=== PATIENT | male | born 1990 | race Caucasian/White ===

== ENCOUNTER 2017-06-03 12:46 | Outpatient (CLI) | payer OTHER ==
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
== END 2017-06-03 12:47 | disposition home or self-care (01) ==
LOC: SCSRAD 12:46
PROVIDERS: ATTEND Family Medicine
DX: S22.22XA Fracture of body of sternum, initial encounter for closed fracture (principal)
CPT/HCPCS: 71046; 71120

== ENCOUNTER 2019-10-01 22:04 | Emergency (ER) | payer OTHER, SELFPAY ==
[2019-10-01] MEDS ORDERED: Diazepam 10 MG/2 ML SYRINGE ONE (22:35)
--- NOTE | 2019-10-01 22:35 | RAD ---
Chest AP view INDICATION: History of chest pain COMPARISON: May 03, 2012 and June 03, 2017 FINDINGS: Lungs: The lungs are clear Cardiac silhouette: The cardiomediastinal silhouette appears within normal limits. Pulmonary vasculature: Normal Pleural spaces: No pleural effusion or pneumothorax is demonstrated. Upper abdomen: No abnormality seen. Osseous structures: No acute osseous abnormality. Additional findings: None. IMPRESSION: No acute cardiopulmonary abnormality.
[2019-10-01 22:38] LABS: #Basophils 0.1 thou/uL (0.0-0.2); #Eosinphils 0.2 thou/uL (0.0-0.7); #Lymphocytes 1.9 thou/uL (1.20-3.40); #Monocytes 0.7 thou/uL (0.11-0.59); %Basophils 1.1 % (0.0-1.0); %Eosinophils 2.6 % (0.0-10.0); %Monocytes 8.2 % (0.0-10.0); %Neutrophils 67.2 % (42.0-75.0); Hemoglobin 16.5 g/dL (14.0-18.0); Mean Corpuscular HGB CONC 34.4 g/dL (32.0-36.0); Mean Corpuscular Hemoglobin 32.8 pg (27.0-31.0); Mean Corpuscular Volume 95.3 fL (78.0-98.0); Mean Platelet Volume 8.2 fL (7.4-10.4); Platelet Count 237 thou/uL (130-400); RBC Distribution Width 11.8 % (11.5-14.5); Red Blood Cell (RBC) Count 5.04 mill/uL (4.70-6.10); White Blood Cell (WBC) Count 8.9 thou/uL (4.8-10.8)
[2019-10-01] MEDS ORDERED: chlordiazePOXIDE HCl 25 MG CAP ONE (22:41)
[2019-10-01 22:55] LABS: Bilirubin Negative (Negative); Blood, Urine Negative (Negative); Clarity Clear (Clear); Glucose, Urine (Dipstick) Normal (Negative); Leukocyte Negative Leu/uL (Negative); Nitrite Negative (Negative); Protein, Urine (Dipstick) 10 mg/dL (Neg-Trace); Urobilinogen Normal mg/dL (Less than 2)
[2019-10-01 22:59] LABS: Anion Gap 17 mmol/L (10-20); BUN (Urea Nitrogen) 7 mg/dL (8.9-20.6); Bilirubin, Total 0.6 mg/dL (0.2-1.2); Calc. Creatinine Clearance 0 mL/min (70-130); Calcium 9.7 mg/dL (7.8-10.44); Carbon Dioxide 25 mmol/L (22-29); Chloride 100 mmol/L (98-107); Estimated GFR-MDRD Greater than 90; Glucose 104 mg/dL (70-105); Potassium 3.7 mmol/L (3.5-5.1); Protein, Total 9.2 g/dL (6.0-8.3); Sodium 138 mmol/L (136-145)
[2019-10-01 23:00] LABS: ALT (SGPT) 186 U/L (8-55); AST (SGOT) 127 U/L (5-34); Albumin 4.9 g/dL (3.5-5.0); Alkaline Phosphatase 92 U/L (40-110); Globulin 4.3 g/dL (2.4-3.5)
--- NOTE | 2019-10-03 12:14 | EKG ---
Test Reason : Blood Pressure : / mmHG Vent. Rate : 107 BPM Atrial Rate : 107 BPM P-R Int : 162 ms QRS Dur : 104 ms QT Int : 350 ms P-R-T Axes : 039 -27 001 degrees QTc Int : 467 ms Sinus tachycardia Possible Left atrial enlargement Incomplete right bundle branch block Left ventricular hypertrophy Abnormal ECG Confirmed by HERLINDA PASCUAL, DIANNA ([id number]), editor department LINA MAHER ([id number]) on 10/03/2019 12:14:09 PM Referred By: Confirmed By:DIANNA PATE MD
== END 2019-10-02 00:40 | disposition home or self-care (01) ==
LOC: ERS 22:04
DX: F10.239 Alcohol dependence with withdrawal, unspecified (principal)
CPT/HCPCS: 71045; 80053; 81003; 84484; 85025; 93005; J3360

== ENCOUNTER 2021-12-22 04:18 | Inpatient (IN) | payer SELFPAY ==
[2021-12-22] MEDS ORDERED: Aspirin Chewable 81 MG TAB ONE (04:37)
[2021-12-22] MEDS ORDERED: Diltiazem 125 MG/25 ML ONE ×2 (04:37→04:46)
[2021-12-22 05:05] LABS: #Basophils 0.1 thou/uL (0.0-0.2); #Eosinphils 0.2 thou/uL (0.0-0.7); #Lymphocytes 1.8 thou/uL (1.20-3.40); #Monocytes 0.9 thou/uL (0.11-0.59); #Neutrophils 5.3 thou/uL (1.40-6.50); %Eosinophils 2.4 % (0.0-10.0); %Lymphocytes 21.6 % (21.0-51.0); %Monocytes 10.9 % (0.0-10.0); %Neutrophils 64.2 % (42.0-75.0); Mean Corpuscular HGB CONC 34.9 g/dL (32.0-36.0); Mean Corpuscular Hemoglobin 33.5 pg (27.0-31.0); Mean Platelet Volume 8.3 fL (7.4-10.4); Platelet Count 228 thou/uL (130-400); RBC Distribution Width 11.4 % (11.5-14.5); Red Blood Cell (RBC) Count 5.07 mill/uL (4.70-6.10); White Blood Cell (WBC) Count 8.3 thou/uL (4.8-10.8)
[2021-12-22 05:26] LABS: ALT (SGPT) 64 U/L (8-55); AST (SGOT) 56 U/L (5-34); Albumin 4.7 g/dL (3.5-5.0); Alkaline Phosphatase 81 U/L (40-110); Anion Gap 18 mmol/L (10-20); BUN (Urea Nitrogen) 9 mg/dL (8.9-20.6); Calc. Creatinine Clearance 0 mL/min (70-130); Calcium 10.2 mg/dL (7.8-10.44); Carbon Dioxide 21 mmol/L (22-29); Chloride 101 mmol/L (98-107); Estimated GFR 119; Globulin 4.2 g/dL (2.4-3.5); Glucose 118 mg/dL (70-105); Potassium 3.4 mmol/L (3.5-5.1); Protein, Total 8.9 g/dL (6.0-8.3); Sodium 137 mmol/L (136-145)
[2021-12-22] MEDS ORDERED: Lorazepam 2 MG/ML VIAL ONE (05:37)
[2021-12-22 07:49] VITALS: BMI 34.7
[2021-12-22] MEDS ORDERED: Diltiazem HCl 125 MG, Admixture Fee 1 EACH in Sodium Chloride 0.9% 100 ML IVPB SCH (08:00)
[2021-12-22] MEDS ORDERED: Acetaminophen 325 MG TAB PO PRN (08:39)
[2021-12-22] MEDS ORDERED: Ondansetron ODT 4 MG TAB PO PRN (08:39)
[2021-12-22 08:43] LABS: Troponin I 0.014 ng/mL (< 0.028)
[2021-12-22] MEDS ORDERED: Diltiazem 125 MG in Sodium Chloride 0.9% 100 ML IVPB SCH (08:45)
[2021-12-22] MEDS ORDERED: Diazepam 5 MG TAB PO PRN (08:55)
[2021-12-22] MEDS ORDERED: Communication Order-Pharmacy FS ONE (09:02)
[2021-12-22 09:09] LABS: SARS-CoV-2 NAA Rapid Test Not Detected (NotDetected)
[2021-12-22] MEDS ORDERED: Enoxaparin Sodium 120 MG/0.8 ML SYRINGE SC SCH (09:15)
[2021-12-22 09:57] LABS: Hemoglobin 15.9 g/dL (14.0-18.0); Platelet Count 190 thou/uL (130-400)
[2021-12-22 10:26] LABS: Alcohol Less than 10 mg/dL (Less than 10); Magnesium 1.6 mg/dL (1.6-2.6)
[2021-12-22] MEDS: Thiamine 100 MG TAB PO SCH (10:54)
[2021-12-22] MEDS ORDERED: Electrolyte Replacement Protocol 1 EACH FS ONE (11:20)
[2021-12-22 11:34] LABS: Troponin I 0.016 ng/mL (< 0.028)
[2021-12-22] MEDS ORDERED: Magnesium 2 GM/50 ML(in water) 2 GM in Premix Bag 1 BAG IVPB SCH (12:15)
[2021-12-22] MEDS ORDERED: Electrolyte Replacement Protocol FS PRN (12:15)
[2021-12-22] MEDS ORDERED: Potassium Chloride 20 MEQ TAB PO SCH (13:00)
[2021-12-22 19:16] LABS: Amphetamine Not Detected (NotDetected); Barbiturates Screen Not Detected (NotDetected); Benzodiazepine Screen Detected (NotDetected); Cocaine Metabolite Screen Not Detected (NotDetected); Methadone Not Detected (NotDetected); Methamphetamine Not Detected (NotDetected); Opiate Screen Not Detected (NotDetected); Oxycodone Screen Not Detected (NotDetected); Phencyclidine (PCP) Not Detected (NotDetected); THC/Cannabinoid Screen Detected (NotDetected); Tricyclic Screen Not Detected (NotDetected)
[2021-12-22] MEDS: Famotidine 20 MG TAB PO SCH (20:01)
[2021-12-22] MEDS: Enoxaparin Sodium 120 MG/0.8 ML SYRINGE SC SCH (20:02)
[2021-12-23 04:56] LABS: Hemoglobin A1c 5.4 % (4.0-6.0)
[2021-12-23 04:57] LABS: #Basophils 0.1 thou/uL (0.0-0.2); #Eosinphils 0.2 thou/uL (0.0-0.7); #Lymphocytes 1.9 thou/uL (1.20-3.40); #Monocytes 0.7 thou/uL (0.11-0.59); #Neutrophils 3.3 thou/uL (1.40-6.50); %Eosinophils 3.7 % (0.0-10.0); %Lymphocytes 30.4 % (21.0-51.0); %Monocytes 11.9 % (0.0-10.0); Hemoglobin 15.3 g/dL (14.0-18.0); Mean Corpuscular HGB CONC 34.9 g/dL (32.0-36.0); Mean Corpuscular Hemoglobin 33.9 pg (27.0-31.0); Mean Corpuscular Volume 97.1 fL (78.0-98.0); Mean Platelet Volume 7.8 fL (7.4-10.4); Platelet Count 177 thou/uL (130-400); RBC Distribution Width 11.3 % (11.5-14.5); Red Blood Cell (RBC) Count 4.52 mill/uL (4.70-6.10); White Blood Cell (WBC) Count 6.2 thou/uL (4.8-10.8)
[2021-12-23 05:18] LABS: Anion Gap 14 mmol/L (10-20); BUN (Urea Nitrogen) 10 mg/dL (8.9-20.6); Calc. Creatinine Clearance 225 mL/min (70-130); Calcium 9.1 mg/dL (7.8-10.44); Carbon Dioxide 21 mmol/L (22-29); Cardiac Risk 4.4 (Less than 4.5); Chloride 103 mmol/L (98-107); Cholesterol 167 mg/dl (< 200 Desired); Estimated GFR 120; Glucose 107 mg/dL (70-105); HDL Cholesterol 38 mg/dL (>60 Neg Risk); LDL Cholesterol, Calculated 61 mg/dL; Magnesium 2.1 mg/dL (1.6-2.6); Potassium 3.7 mmol/L (3.5-5.1); Sodium 134 mmol/L (136-145); Triglycerides 338 mg/dL (Less than 150)
[2021-12-23] MEDS: Enoxaparin Sodium 120 MG/0.8 ML SYRINGE SC SCH (09:36)
[2021-12-23] MEDS: Thiamine 100 MG TAB PO SCH (09:37)
[2021-12-23] MEDS: Famotidine 20 MG TAB PO SCH (09:37)
[2021-12-23 15:59] VITALS: BP 135/89; TEMP 98.3
== END 2021-12-23 17:50 | disposition home or self-care (01) | DRG 309 ==
LOC: SUATTDRO 04:18 → ERS 04:18 → CCU 07:40 → 2NO 20:42
PROVIDERS: ADMIT Internal Medicine; ATTEND Family Medicine
DX: I48.91 Unspecified atrial fibrillation (principal); E87.1 Hypo-osmolality and hyponatremia; I10 Essential (primary) hypertension; I51.7 Cardiomegaly; F12.929 Cannabis use, unspecified with intoxication, unspecified; Z20.822 Contact with and (suspected) exposure to COVID-19; Z72.89 Other problems related to lifestyle
CPT/HCPCS: 36415; 71045; 80048; 80053; 80061; 80306; 80307; 83036; 83735; 84443; 84484; 85025; 85379; 93005; 93306; 96365; 96366; 96375; 96376; J1650; J2060; J3475; U0002

== ENCOUNTER 2022-04-17 05:29 | Emergency (ER) | payer SELFPAY ==
[2022-04-17] MEDS ORDERED: Ondansetron PF 4 MG/2 ML Vial ONE (05:58)
[2022-04-17] MEDS ORDERED: Lidocaine Viscous Sol 2% 15 ml UD Cup ONE (05:58)
[2022-04-17] MEDS ORDERED: Famotidine/PF 20 mg/2ml Vial ONE (05:58)
[2022-04-17] MEDS ORDERED: Aspirin Chewable 81 MG TAB ONE (05:58)
[2022-04-17] MEDS ORDERED: Mag-Al 1200 mg/1200 mg/30 ML UDCUP ONE (05:58)
[2022-04-17 06:34] LABS: #Eosinphils 0.1 thou/uL (0.0-0.7); #Lymphocytes 1.9 thou/uL (1.20-3.40); #Monocytes 0.8 thou/uL (0.11-0.59); #Neutrophils 4.8 thou/uL (1.40-6.50); %Basophils 0.6 % (0.0-1.0); %Eosinophils 1.7 % (0.0-10.0); %Lymphocytes 24.9 % (21.0-51.0); %Neutrophils 62.8 % (42.0-75.0); Hemoglobin 14.3 g/dL (14.0-18.0); Mean Corpuscular HGB CONC 35.4 g/dL (32.0-36.0); Mean Corpuscular Hemoglobin 33.2 pg (27.0-31.0); Mean Corpuscular Volume 93.9 fl (78.0-98.0); Mean Platelet Volume 7.6 fL (7.4-10.4); Platelet Count 227 10x3/uL (130-400); RBC Distribution Width 11.3 % (11.5-14.5); Red Blood Cell (RBC) Count 4.31 mill/uL (4.70-6.10); White Blood Cell (WBC) Count 7.6 10x3/uL (4.8-10.8)
[2022-04-17 06:54] LABS: ALT (SGPT) 44 U/L (8-55); AST (SGOT) 34 U/L (5-34); Albumin 4.4 g/dL (3.5-5.0); Alkaline Phosphatase 66 U/L (40-110); Anion Gap 15 mmol/L (10-20); BUN (Urea Nitrogen) 10 mg/dL (8.9-20.6); Bilirubin, Total 0.4 mg/dL (0.2-1.2); CK (CPK) 287 U/L (30-200); Calc. Creatinine Clearance 0 mL/min (70-130); Carbon Dioxide 23 mmol/L (22-29); Chloride 101 mmol/L (98-107); Estimated GFR 117; Globulin 3.2 g/dL (2.4-3.5); Glucose 104 mg/dL (70-105); Lipase 39 U/L (8-78); Potassium 3.9 mmol/L (3.5-5.1); Protein, Total 7.6 g/dL (6.0-8.3); Sodium 135 mmol/L (136-145)
== END 2022-04-17 08:21 | disposition home or self-care (01) ==
LOC: ERS 05:29
DX: R07.9 Chest pain, unspecified (principal); I10 Essential (primary) hypertension; Z79.899 Other long term (current) drug therapy
CPT/HCPCS: 36415; 71045; 80053; 82550; 83690; 84484; 85025; 93005; 96374; 96375; J2405; S0028

== ENCOUNTER 2022-10-02 11:58 | Emergency (ER) | payer SELFPAY ==
[2022-10-02 12:52] LABS: #Basophils 0.1 thou/uL (0.0-0.2); #Eosinphils 0.1 thou/uL (0.0-0.7); #Monocytes 0.7 thou/uL (0.11-0.59); %Basophils 1.2 % (0.0-1.0); %Eosinophils 1.8 % (0.0-10.0); %Lymphocytes 17.6 % (21.0-51.0); %Monocytes 11.6 % (0.0-10.0); %Neutrophils 67.3 % (42.0-75.0); Hemoglobin 16.2 g/dL (14.0-18.0); Mean Corpuscular HGB CONC 34.9 g/dL (32.0-36.0); Mean Corpuscular Hemoglobin 31.4 pg (27.0-31.0); Mean Corpuscular Volume 89.9 fl (78.0-98.0); Mean Platelet Volume 9.7 fL (7.4-10.4); Platelet Count 217 10x3/uL (130-400); RBC Distribution Width 12.3 % (11.5-14.5); Red Blood Cell (RBC) Count 5.16 mill/uL (4.70-6.10)
[2022-10-02 13:18] LABS: ALT (SGPT) 45 U/L (8-55); AST (SGOT) 51 U/L (5-34); Albumin 4.8 g/dL (3.5-5.0); Alkaline Phosphatase 79 U/L (40-110); Anion Gap 18 mmol/L (10-20); BUN (Urea Nitrogen) 10 mg/dL (8.9-20.6); Bilirubin, Total 0.5 mg/dL (0.2-1.2); CK (CPK) 348 U/L (30-200); Calc. Creatinine Clearance 0 mL/min (70-130); Calcium 9.9 mg/dL (7.8-10.44); Carbon Dioxide 20 mmol/L (22-29); Chloride 103 mmol/L (98-107); Estimated GFR 117; Globulin 4.2 g/dL (2.4-3.5); Glucose 100 mg/dL (70-105); Lipase 44 U/L (8-78); Sodium 137 mmol/L (136-145)
[2022-10-02 13:20] LABS: ALT (SGPT) 45 U/L (8-55); AST (SGOT) 49 U/L (5-34); Albumin 4.8 g/dL (3.5-5.0); Alkaline Phosphatase 78 U/L (40-110); Anion Gap 17 mmol/L (10-20); BUN (Urea Nitrogen) 9 mg/dL (8.9-20.6); Bilirubin, Total 0.5 mg/dL (0.2-1.2); Calc. Creatinine Clearance 0 mL/min (70-130); Calcium 9.8 mg/dL (7.8-10.44); Carbon Dioxide 21 mmol/L (22-29); Chloride 102 mmol/L (98-107); Estimated GFR 117; Glucose 101 mg/dL (70-105); Lipase 44 U/L (8-78); Magnesium 1.6 mg/dL (1.6-2.6); Potassium 3.9 mmol/L (3.5-5.1); Protein, Total 8.8 g/dL (6.0-8.3); Sodium 136 mmol/L (136-145)
[2022-10-02] MEDS ORDERED: Ondansetron PF 4 MG/2 ML Vial ONE (13:34)
[2022-10-02 13:52] LABS: Acetaminophen Less than 10 mcg/mL (10.0-30.0); Alcohol 38.8 mg/dL (Less than 10); Salicylate Less than 8.0 mg/dL (15.0-30.0)
[2022-10-02] MEDS ORDERED: Magnesium 2 GM/50 ML BAG (IN WATER) ONE (14:11)
[2022-10-02 14:20] LABS: Amphetamine Not Detected (NotDetected); Barbiturates Screen Not Detected (NotDetected); Benzodiazepine Screen Not Detected (NotDetected); Cocaine Metabolite Screen Not Detected (NotDetected); Methadone Not Detected (NotDetected); Methamphetamine Not Detected (NotDetected); Opiate Screen Not Detected (NotDetected); Oxycodone Screen Not Detected (NotDetected); Phencyclidine (PCP) Not Detected (NotDetected); THC/Cannabinoid Screen Detected (NotDetected); Tricyclic Screen Not Detected (NotDetected)
== END 2022-10-02 15:22 | disposition home or self-care (01) ==
LOC: ERS 11:58
DX: R07.89 Other chest pain (principal); R10.13 Epigastric pain; I10 Essential (primary) hypertension
CPT/HCPCS: 71045; 80053; 80306; 80307; 82550; 83690; 83735; 83880; 84484; 85025; 85379; 93005; 96365; 96375; J2405; J3475

== ENCOUNTER 2023-01-31 13:20 | Inpatient (IN) | payer SELFPAY ==
[2023-01-31] MEDS ORDERED: LORazepam 2 MG/ML SYR.(CARPUJECT) ONE (13:25)
[2023-01-31] MEDS ORDERED: dilTIAZem 25 MG/5 ML VIAL ONE (13:31)
[2023-01-31] MEDS ORDERED: dilTIAZem 125 MG/25 ML SDV ONE (13:31)
[2023-01-31 13:47] LABS: #Basophils 0.1 thou/uL (0.0-0.2); #Eosinphils 0.2 thou/uL (0.0-0.7); #Monocytes 0.9 thou/uL (0.11-0.59); #Neutrophils 3.5 thou/uL (1.40-6.50); %Basophils 1.1 % (0.0-1.0); %Lymphocytes 35.9 % (21.0-51.0); %Monocytes 11.6 % (0.0-10.0); Hematocrit 49.3 % (42.0-52.0); Hemoglobin 17.5 g/dL (14.0-18.0); Mean Corpuscular HGB CONC 35.5 g/dL (32.0-36.0); Mean Corpuscular Hemoglobin 32.2 pg (27.0-31.0); Mean Corpuscular Volume 90.6 fl (78.0-98.0); Mean Platelet Volume 9.4 fL (7.4-10.4); Platelet Count 228 10x3/uL (130-400); RBC Distribution Width 12.3 % (11.5-14.5); Red Blood Cell (RBC) Count 5.44 mill/uL (4.70-6.10); White Blood Cell (WBC) Count 7.3 10x3/uL (4.8-10.8)
[2023-01-31] MEDS ORDERED: Ondansetron PF 4 MG/2 ML Vial ONE (13:59)
[2023-01-31 14:09] LABS: Acetaminophen Less than 10 mcg/mL (10.0-30.0); Alcohol 40.8 mg/dL (Less than 10); Salicylate Less than 8.0 mg/dL (15.0-30.0)
[2023-01-31] MEDS ORDERED: Metoprolol Tartrate 5 MG/5 ML VIAL ONE (14:11)
[2023-01-31 14:13] LABS: ALT (SGPT) 72 U/L (8-55); AST (SGOT) 58 U/L (5-34); Albumin 5.3 g/dL (3.5-5.0); Alkaline Phosphatase 80 U/L (40-110); Anion Gap 21 mmol/L (10-20); BUN (Urea Nitrogen) 6 mg/dL (8.9-20.6); Bilirubin, Total 0.3 mg/dL (0.2-1.2); Calc. Creatinine Clearance 0 mL/min (70-130); Carbon Dioxide 18 mmol/L (22-29); Chloride 104 mmol/L (98-107); Estimated GFR 117; Globulin 3.6 g/dL (2.4-3.5); Glucose 130 mg/dL (70-105); Potassium 3.8 mmol/L (3.5-5.1); Protein, Total 8.9 g/dL (6.0-8.3); Sodium 139 mmol/L (136-145)
[2023-01-31 14:14] LABS: Troponin I Less than 0.010 ng/mL (< 0.028)
[2023-01-31 14:14] LABS: Bacteria/HPF None Seen HPF (None Seen); Bilirubin Negative (Negative); Blood, Urine Negative (Negative); CAUTI Indications for Culture Alt mental st,lethar; Clarity Clear (Clear); Glucose, Urine (Dipstick) Normal (Negative); Ketone, Urine Negative (Negative); Leukocyte Negative Leu/uL (Negative); Nitrite Negative (Negative); Protein, Urine (Dipstick) 10 mg/dL (Neg-Trace); RBC/HPF 0-3 HPF (0-3); Specific Gravity, Urine 1.006 (1.002-1.036); Squamous Epithelial None Seen HPF (0-3); Urobilinogen Normal mg/dL (Less than 2); WBC/HPF 0-3 HPF (0-3); pH, Urine 7.5 (5.0-9.0)
[2023-01-31 14:16] LABS: Urine Culture Reflex No No
[2023-01-31 14:19] LABS: Amphetamine Not Detected (NotDetected); Barbiturates Screen Not Detected (NotDetected); Benzodiazepine Screen Not Detected (NotDetected); Cocaine Metabolite Screen Not Detected (NotDetected); Methadone Not Detected (NotDetected); Methamphetamine Not Detected (NotDetected); Opiate Screen Not Detected (NotDetected); Oxycodone Screen Not Detected (NotDetected); Phencyclidine (PCP) Not Detected (NotDetected); THC/Cannabinoid Screen Detected (NotDetected); Tricyclic Screen Not Detected (NotDetected)
[2023-01-31] MEDS ORDERED: Multivitamins, Adult 10 ML, Folic Acid 1 MG, Thiamine HCl 100 MG in Dextrose 5 %-0.45 %... IV SCH (16:00)
[2023-01-31] MEDS ORDERED: Metoprolol Tartrate 5 MG/5 ML VIAL IVP PRN (16:07)
[2023-01-31] MEDS ORDERED: Ondansetron ODT 4 MG TAB PO PRN (16:11)
[2023-01-31] MEDS ORDERED: Lorazepam 2 MG/ML VIAL IM PRN (16:11)
[2023-01-31] MEDS ORDERED: Acetaminophen 325 MG TAB PO PRN (16:12)
[2023-01-31] MEDS ORDERED: Calcium Carbonate 500 MG ChewTAB PO PRN (16:12)
[2023-01-31] MEDS ORDERED: Senokot S 8.6-50 MG TAB PO PRN (16:12)
[2023-01-31] MEDS ORDERED: dilTIAZem 125 MG in Sodium Chloride 0.9% 100 ML IVPB SCH (16:15)
[2023-01-31] MEDS ORDERED: Electrolyte Replacement Protocol FS SCH (16:15)
[2023-01-31] MEDS ORDERED: D5 1/2 NS w/20 mEq KCL 1,000 ML IV SCH ×2 (16:45→23:55)
[2023-01-31] MEDS ORDERED: Metoprolol Tartrate 25 MG TAB PO SCH ×2 (16:45→21:00)
[2023-01-31] MEDS ORDERED: Nitroglycerin 0.4 MG TAB (25 Tab Bottle) SL PRN (17:06)
[2023-01-31] MEDS: Thiamine HCl 200 MG/2 ML VIAL SLOW IVP SCH (17:15)
[2023-01-31] MEDS: Lorazepam 1 MG TAB PO SCH (17:16)
[2023-01-31 17:35] VITALS: BMI 213.6
[2023-01-31 17:50] LABS: Magnesium 1.5 mg/dL (1.6-2.6); Phosphorus 2.5 mg/dL (2.3-4.7)
[2023-01-31 17:56] LABS: Troponin I Less than 0.010 ng/mL (< 0.028)
[2023-01-31] MEDS ORDERED: Magnesium Sulfate In Water 4 GM in Premix 1 BAG IVPB SCH (18:15)
[2023-01-31] MEDS: Lorazepam 1 MG TAB PO PRN ×2 (18:41→22:30)
[2023-01-31] MEDS: dilTIAZem 125 MG, Admixture Fee 1 EACH in Sodium Chloride 0.9% 100 ML IVPB SCH (21:45)
[2023-01-31] MEDS: Famotidine 20 MG TAB PO SCH (22:29)
[2023-01-31] MEDS: Flecainide 50 MG TAB PO SCH (22:29)
[2023-01-31] MEDS: Metoprolol Tartrate 25 MG TAB PO SCH (22:30)
[2023-02-01] MEDS: Lorazepam 1 MG TAB PO SCH ×4 (01:18→17:36)
[2023-02-01 06:16] LABS: #Basophils 0.1 thou/uL (0.0-0.2); #Eosinphils 0.2 thou/uL (0.0-0.7); #Monocytes 0.7 thou/uL (0.11-0.59); #Neutrophils 4.6 thou/uL (1.40-6.50); %Basophils 0.6 % (0.0-1.0); %Eosinophils 2.9 % (0.0-10.0); %Lymphocytes 32.7 % (21.0-51.0); %Neutrophils 55.4 % (42.0-75.0); Hematocrit 44.5 % (42.0-52.0); Hemoglobin 16.1 g/dL (14.0-18.0); Mean Corpuscular HGB CONC 36.2 g/dL (32.0-36.0); Mean Corpuscular Hemoglobin 32.9 pg (27.0-31.0); Mean Platelet Volume 9.6 fL (7.4-10.4); Platelet Count 188 10x3/uL (130-400); Red Blood Cell (RBC) Count 4.89 mill/uL (4.70-6.10); White Blood Cell (WBC) Count 8.3 10x3/uL (4.8-10.8)
[2023-02-01 06:39] LABS: ALT (SGPT) 59 U/L (8-55); AST (SGOT) 47 U/L (5-34); Albumin 4.1 g/dL (3.5-5.0); Alkaline Phosphatase 70 U/L (40-110); Anion Gap 18 mmol/L (10-20); BUN (Urea Nitrogen) 7 mg/dL (8.9-20.6); Bilirubin, Total 0.4 mg/dL (0.2-1.2); Calc. Creatinine Clearance 206 mL/min (70-130); Calcium 8.6 mg/dL (7.8-10.44); Carbon Dioxide 17 mmol/L (22-29); Chloride 103 mmol/L (98-107); Estimated GFR 117; Globulin 4.1 g/dL (2.4-3.5); Glucose 114 mg/dL (70-105); Magnesium 2.1 mg/dL (1.6-2.6); Phosphorus 2.8 mg/dL (2.3-4.7); Potassium 3.4 mmol/L (3.5-5.1); Protein, Total 8.2 g/dL (6.0-8.3); Sodium 135 mmol/L (136-145)
[2023-02-01] MEDS: dilTIAZem 125 MG, Admixture Fee 1 EACH in Sodium Chloride 0.9% 100 ML IVPB SCH (07:15)
[2023-02-01] MEDS ORDERED: Multivit, Therapeutic 1 TAB PO SCH (09:00)
[2023-02-01] MEDS ORDERED: Aspirin 325 mg Enteric Coated Tablet PO SCH (09:00)
[2023-02-01] MEDS ORDERED: Metoprolol Tartrate 25 MG TAB PO SCH (09:00)
[2023-02-01] MEDS ORDERED: Folic Acid 1 MG TAB PO SCH (09:00)
[2023-02-01] MEDS: Famotidine 20 MG TAB PO SCH (09:19)
[2023-02-01] MEDS: Flecainide 50 MG TAB PO SCH (09:20)
[2023-02-01] MEDS: Metoprolol Tartrate 25 MG TAB PO SCH (09:20)
[2023-02-01] MEDS: Lorazepam 1 MG TAB PO PRN (09:21)
[2023-02-01] MEDS ORDERED: Lisinopril 10 MG TAB PO SCH (10:15)
[2023-02-01] MEDS ORDERED: Potassium Chloride 20 MEQ TAB PO SCH (10:15)
[2023-02-01] MEDS ORDERED: Lorazepam 1 MG TAB PO PRN (16:11)
[2023-02-01] MEDS: Thiamine HCl 200 MG/2 ML VIAL SLOW IVP SCH (17:35)
[2023-02-01 18:26] VITALS: BP 143/95; TEMP 97.5
[2023-02-02] MEDS ORDERED: Lisinopril 10 MG TAB PO SCH (09:00)
[2023-02-02] MEDS ORDERED: Lorazepam 1 MG TAB PO PRN (16:11)
[2023-02-02] MEDS ORDERED: Lorazepam 0.5 MG TAB PO SCH (18:00)
[2023-02-03] MEDS ORDERED: Lorazepam 0.5 MG TAB PO PRN (16:11)
[2023-02-03] MEDS ORDERED: FLU VACC QS2023-24(6MOS UP)/PF 60 MCG/0.5 ML SYRINGE IM ONE (17:45)
[2023-02-03] MEDS ORDERED: Thiamine 100 MG TAB PO SCH (18:00)
== END 2023-02-01 19:34 | disposition home or self-care (01) | DRG 308 ==
LOC: ERS 13:20 → 2NO 16:29
PROVIDERS: ADMIT Internal Medicine; ATTEND Internal Medicine
DX: I48.0 Paroxysmal atrial fibrillation (principal); G92.8 Other toxic encephalopathy; E87.1 Hypo-osmolality and hyponatremia; I10 Essential (primary) hypertension; F10.20 Alcohol dependence, uncomplicated; E87.6 Hypokalemia; F41.9 Anxiety disorder, unspecified; Z83.3 Family history of diabetes mellitus; Z79.899 Other long term (current) drug therapy; Z71.41 Alcohol abuse counseling and surveillance of alcoholic
CPT/HCPCS: 36415; 36416; 71045; 80053; 80306; 80307; 81001; 83735; 83880; 84100; 84484; 85025; 93005; 93306; 94760; 96365; 96366; 96372; 96375; 96376; J1650; J2060; J2405; J3411; J3475; J3480; J3490; J7042

== ENCOUNTER 2023-03-30 11:33 | Inpatient (IN) | payer OTHER ==
[2023-03-30] MEDS ORDERED: dilTIAZem 25 MG/5 ML VIAL ONE ×2 (12:04→13:04)
[2023-03-30] MEDS ORDERED: dilTIAZem 125 MG/25 ML SDV ONE (12:04)
[2023-03-30] MEDS ORDERED: Digoxin 0.5 MG/2 ML AMP ONE (12:04)
[2023-03-30] MEDS ORDERED: Aspirin Chewable 81 MG TAB ONE (12:04)
[2023-03-30 12:09] LABS: #Basophils 0.1 thou/uL (0.0-0.2); #Eosinphils 0.2 thou/uL (0.0-0.7); #Monocytes 1.1 thou/uL (0.11-0.59); #Neutrophils 2.9 thou/uL (1.40-6.50); %Eosinophils 2.5 % (0.0-10.0); %Lymphocytes 41.5 % (21.0-51.0); %Monocytes 15.4 % (0.0-10.0); %Neutrophils 39.2 % (42.0-75.0); Hemoglobin 16.9 g/dL (14.0-18.0); Mean Corpuscular Hemoglobin 31.8 pg (27.0-31.0); Mean Corpuscular Volume 88.3 fl (78.0-98.0); Mean Platelet Volume 9.9 fL (7.4-10.4); Platelet Count 218 10x3/uL (130-400); RBC Distribution Width 12.2 % (11.5-14.5); Red Blood Cell (RBC) Count 5.32 mill/uL (4.70-6.10); White Blood Cell (WBC) Count 7.3 10x3/uL (4.8-10.8)
[2023-03-30] MEDS ORDERED: Magnesium 2 GM/50 ML BAG (IN WATER) ONE (12:20)
[2023-03-30 12:36] LABS: ALT (SGPT) 64 U/L (8-55); AST (SGOT) 43 U/L (5-34); Acetaminophen Less than 10 mcg/mL (10.0-30.0); Albumin 4.8 g/dL (3.5-5.0); Alcohol 28.3 mg/dL (Less than 10); Alkaline Phosphatase 69 U/L (40-110); Anion Gap 19 mmol/L (10-20); BUN (Urea Nitrogen) 6 mg/dL (8.9-20.6); Bilirubin, Total 0.5 mg/dL (0.2-1.2); CK (CPK) 441 U/L (30-200); Calc. Creatinine Clearance 0 mL/min (70-130); Calcium 9.8 mg/dL (7.8-10.44); Carbon Dioxide 19 mmol/L (22-29); Chloride 105 mmol/L (98-107); Estimated GFR 116; Glucose 111 mg/dL (70-105); Lipase 42 U/L (8-78); Potassium 3.8 mmol/L (3.5-5.1); Protein, Total 8.8 g/dL (6.0-8.3); Salicylate Less than 8.0 mg/dL (15.0-30.0); Sodium 139 mmol/L (136-145)
[2023-03-30 12:39] LABS: Troponin I Less than 0.010 ng/mL (< 0.028)
[2023-03-30] MEDS ORDERED: LORazepam 2 MG/ML SYR.(CARPUJECT) ONE (13:15)
[2023-03-30 13:55] LABS: Bacteria/HPF None Seen HPF (None Seen); Bilirubin Negative (Negative); Blood, Urine Negative (Negative); CAUTI Indications for Culture Alt mental st,lethar; Clarity Clear (Clear); Glucose, Urine (Dipstick) Normal (Negative); Ketone, Urine Negative (Negative); Leukocyte Negative Leu/uL (Negative); Nitrite Negative (Negative); Protein, Urine (Dipstick) Negative (Neg-Trace); RBC/HPF 0-3 HPF (0-3); Specific Gravity, Urine 1.013 (1.002-1.036); Squamous Epithelial None Seen HPF (0-3); Urobilinogen Normal mg/dL (Less than 2); WBC/HPF 0-3 HPF (0-3)
[2023-03-30 13:58] LABS: Urine Culture Reflex No No
[2023-03-30 14:03] LABS: Amphetamine Not Detected (NotDetected); Barbiturates Screen Not Detected (NotDetected); Benzodiazepine Screen Not Detected (NotDetected); Cocaine Metabolite Screen Not Detected (NotDetected); Methadone Not Detected (NotDetected); Methamphetamine Not Detected (NotDetected); Opiate Screen Not Detected (NotDetected); Oxycodone Screen Not Detected (NotDetected); Phencyclidine (PCP) Not Detected (NotDetected); THC/Cannabinoid Screen Detected (NotDetected); Tricyclic Screen Not Detected (NotDetected)
[2023-03-30] MEDS ORDERED: Senokot S 8.6-50 MG TAB PO PRN (14:48)
[2023-03-30] MEDS ORDERED: Lorazepam 2 MG/ML VIAL SLOW IVP PRN (14:55)
[2023-03-30] MEDS ORDERED: dilTIAZem 125 MG in Sodium Chloride 0.9% 100 ML IVPB SCH (15:00)
[2023-03-30] MEDS ORDERED: Electrolyte Replacement Protocol 1 EACH FS SCH (15:15)
[2023-03-30] MEDS ORDERED: Lorazepam 1 MG TAB PO PRN (15:15)
[2023-03-30] MEDS ORDERED: Ondansetron ODT 4 MG TAB PO PRN (15:15)
[2023-03-30 15:26] LABS: Magnesium 1.6 mg/dL (1.6-2.6)
[2023-03-30] MEDS ORDERED: Flecainide 50 MG TAB PO SCH (15:30)
[2023-03-30] MEDS: Lorazepam 1 MG TAB PO SCH ×2 (17:42→23:02)
[2023-03-30] MEDS: Thiamine HCl 200 MG/2 ML VIAL SLOW IVP SCH (17:42)
[2023-03-30] MEDS: Multivitamins, Adult 10 ML, Folic Acid 1 MG, Thiamine HCl 100 MG in Dextrose 5 %-0.45 %... IV SCH (17:43)
[2023-03-30 17:56] LABS: Bilirubin, Direct 0.2 mg/dL (0.1-0.3)
[2023-03-30 18:01] LABS: Phosphorus 1.4 mg/dL (2.3-4.7)
[2023-03-30 18:26] VITALS: BMI 32.1
[2023-03-30] MEDS: Sodium Chloride 0.9% 1,000 ML IV SCH (19:00)
[2023-03-30] MEDS: PHOS-NAK 1 PKT PACK PO SCH (23:01)
[2023-03-31] MEDS: Sodium Chloride 0.9% 1,000 ML IV SCH (01:35)
[2023-03-31] MEDS: PHOS-NAK 1 PKT PACK PO SCH ×3 (02:47→09:15)
[2023-03-31] MEDS: Lorazepam 1 MG TAB PO SCH ×3 (04:11→14:59)
[2023-03-31 06:02] LABS: #Basophils 0.1 thou/uL (0.0-0.2); #Eosinphils 0.2 thou/uL (0.0-0.7); #Monocytes 0.8 thou/uL (0.11-0.59); %Basophils 0.8 % (0.0-1.0); %Eosinophils 3.8 % (0.0-10.0); %Lymphocytes 35.4 % (21.0-51.0); %Neutrophils 46.5 % (42.0-75.0); Hematocrit 41.6 % (42.0-52.0); Hemoglobin 14.3 g/dL (14.0-18.0); Mean Corpuscular HGB CONC 34.4 g/dL (32.0-36.0); Mean Corpuscular Hemoglobin 32.1 pg (27.0-31.0); Mean Platelet Volume 10.3 fL (7.4-10.4); Platelet Count 165 10x3/uL (130-400); RBC Distribution Width 12.2 % (11.5-14.5); Red Blood Cell (RBC) Count 4.45 mill/uL (4.70-6.10); White Blood Cell (WBC) Count 6.4 10x3/uL (4.8-10.8)
[2023-03-31 06:05] LABS: Mean Corpuscular Volume 93.5 fl (78.0-98.0)
[2023-03-31 06:35] LABS: ALT (SGPT) 44 U/L (8-55); AST (SGOT) 33 U/L (5-34); Albumin 3.7 g/dL (3.5-5.0); Alkaline Phosphatase 57 U/L (40-110); Anion Gap 11 mmol/L (10-20); BUN (Urea Nitrogen) 9 mg/dL (8.9-20.6); Bilirubin, Total 0.7 mg/dL (0.2-1.2); Calc. Creatinine Clearance 204 mL/min (70-130); Calcium 8.2 mg/dL (7.8-10.44); Carbon Dioxide 23 mmol/L (22-29); Chloride 105 mmol/L (98-107); Estimated GFR 118; Globulin 3.1 g/dL (2.4-3.5); Glucose 93 mg/dL (70-105); Magnesium 1.9 mg/dL (1.6-2.6); Phosphorus 3.6 mg/dL (2.3-4.7); Potassium 3.8 mmol/L (3.5-5.1); Protein, Total 6.8 g/dL (6.0-8.3); Sodium 135 mmol/L (136-145)
[2023-03-31] MEDS ORDERED: Multivit, Therapeutic 1 TAB PO SCH (09:00)
[2023-03-31] MEDS ORDERED: Flecainide 50 MG TAB PO SCH (09:00)
[2023-03-31] MEDS ORDERED: Aspirin 325 MG TAB PO SCH (09:00)
[2023-03-31] MEDS ORDERED: Folic Acid 1 MG TAB PO SCH (09:00)
[2023-03-31] MEDS ORDERED: Pantoprazole 40 MG VIAL IVP SCH (09:00)
[2023-03-31] MEDS ORDERED: Lisinopril 10 MG TAB PO SCH (09:00)
[2023-03-31] MEDS ORDERED: Magnesium 2 GM/50 ML(in water) 2 GM in Premix 1 BAG IVPB SCH (14:30)
[2023-03-31] MEDS ORDERED: Lorazepam 1 MG TAB PO PRN (15:15)
[2023-03-31 15:19] VITALS: BP 136/89; TEMP 97.4
[2023-03-31] MEDS: Multivitamins, Adult 10 ML, Folic Acid 1 MG, Thiamine HCl 100 MG in Dextrose 5 %-0.45 %... IV SCH (16:29)
[2023-03-31] MEDS: Thiamine HCl 200 MG/2 ML VIAL SLOW IVP SCH (16:30)
[2023-04-01 11:42] LABS: Syphilis Antibody Nonreactive (Nonreactive); Syphilis Antibody Index 0.04 S/CO (<1.00 Non-Reactive)
[2023-04-01] MEDS ORDERED: Lorazepam 1 MG TAB PO PRN (15:15)
[2023-04-01] MEDS ORDERED: Lorazepam 0.5 MG TAB PO SCH (16:00)
[2023-04-02] MEDS ORDERED: Lorazepam 0.5 MG TAB PO PRN (15:15)
[2023-04-02] MEDS ORDERED: Thiamine 100 MG TAB PO SCH (16:00)
== END 2023-03-31 16:45 | disposition home or self-care (01) | DRG 310 ==
LOC: ERS 11:33 → 2NO 13:59
PROVIDERS: ADMIT Internal Medicine; ATTEND Hospitalist
DX: I48.0 Paroxysmal atrial fibrillation (principal); F10.10 Alcohol abuse, uncomplicated; I10 Essential (primary) hypertension; G47.33 Obstructive sleep apnea (adult) (pediatric); F41.9 Anxiety disorder, unspecified; F32.A Depression, unspecified; G47.30 Sleep apnea, unspecified; Z79.899 Other long term (current) drug therapy; Z79.82 Long term (current) use of aspirin; Z71.41 Alcohol abuse counseling and surveillance of alcoholic
CPT/HCPCS: 36415; 71045; 80053; 80306; 80307; 81001; 82248; 82550; 83690; 83735; 83880; 84100; 84443; 84484; 85025; 85379; 86780; 93005; C9113; J1160; J2060; J3411; J3475; J7042; J7050

== ENCOUNTER 2023-08-28 20:12 | Emergency (ER) | payer OTHER ==
[2023-08-28] MEDS ORDERED: LORazepam 2 MG/ML SYR.(CARPUJECT) ONE (20:47)
[2023-08-28 20:51] LABS: #Basophils 0.09 10x3/uL (0.0-0.2); %Basophils 1.2 % (0.0-1.0); %Eosinophils 0.8 % (0.0-10.0); %Lymphocytes 30.9 % (21.0-51.0); %Monocytes 13.4 % (0.0-10.0); %Neutrophils 53.4 % (42.0-75.0); Hematocrit 44.7 % (42.0-52.0); Hemoglobin 16.5 g/dL (14.0-18.0); Mean Corpuscular HGB CONC 36.9 g/dL (32.0-36.0); Mean Corpuscular Hemoglobin 32.4 pg (27.0-31.0); Mean Corpuscular Volume 87.6 fL (78.0-98.0); Mean Platelet Volume 9.5 fL (7.4-10.4); Platelet Count 240 10x3/uL (130-400); RBC Distribution Width 12.3 % (11.5-14.5)
[2023-08-28 21:05] LABS: ALT (SGPT) 47 U/L (8-55); AST (SGOT) 42 U/L (5-34); Albumin 4.5 g/dL (3.5-5.0); Alkaline Phosphatase 69 U/L (40-110); Anion Gap 23 mmol/L (10-20); BUN (Urea Nitrogen) 9 mg/dL (8.9-20.6); Bilirubin, Total 0.8 mg/dL (0.2-1.2); Calc. Creatinine Clearance 0 mL/min (70-130); Calcium 9.7 mg/dL (7.8-10.44); Carbon Dioxide 16 mmol/L (22-29); Chloride 103 mmol/L (98-107); Estimated GFR 96; Globulin 4.2 g/dL (2.4-3.5); Glucose 107 mg/dL (70-105); Lipase 25 U/L (8-78); Potassium 3.8 mmol/L (3.5-5.1); Protein, Total 8.7 g/dL (6.0-8.3); Sodium 138 mmol/L (136-145)
[2023-08-28 21:12] LABS: Troponin I Less than 0.010 ng/mL (< 0.028)
== END 2023-08-28 22:40 | disposition home or self-care (01) ==
LOC: ERS 20:12
DX: R07.9 Chest pain, unspecified (principal); F41.9 Anxiety disorder, unspecified; F10.239 Alcohol dependence with withdrawal, unspecified; I10 Essential (primary) hypertension
CPT/HCPCS: 71045; 80053; 83690; 84484; 85025; 93005; 96374; J2060

== ENCOUNTER 2023-09-26 20:15 | Emergency (ER) | payer OTHER ==
[2023-09-26 20:53] LABS: #Basophils 0.08 10x3/uL (0.0-0.2); %Basophils 1.2 % (0.0-1.0); %Eosinophils 3.7 % (0.0-10.0); %Lymphocytes 35.9 % (21.0-51.0); %Monocytes 10.8 % (0.0-10.0); %Neutrophils 48.1 % (42.0-75.0); Hematocrit 45.7 % (42.0-52.0); Hemoglobin 16.4 g/dL (14.0-18.0); Mean Corpuscular HGB CONC 35.9 g/dL (32.0-36.0); Mean Corpuscular Hemoglobin 31.8 pg (27.0-31.0); Mean Corpuscular Volume 88.7 fL (78.0-98.0); Mean Platelet Volume 9.3 fL (7.4-10.4); Platelet Count 217 10x3/uL (130-400); RBC Distribution Width 12.1 % (11.5-14.5); Red Blood Cell (RBC) Count 5.15 mill/uL (4.70-6.10)
[2023-09-26 21:06] LABS: PTT 27.9 sec (22.9-36.1); Prothrombin Time 12.8 sec (12.0-14.7)
[2023-09-26 21:07] LABS: Lipase 41 U/L (8-78)
[2023-09-26 21:09] LABS: ALT (SGPT) 58 U/L (8-55); AST (SGOT) 57 U/L (5-34); Albumin 4.7 g/dL (3.5-5.0); Alkaline Phosphatase 75 U/L (40-110); Anion Gap 20 mmol/L (10-20); BUN (Urea Nitrogen) 8 mg/dL (8.9-20.6); Bilirubin, Total 0.5 mg/dL (0.2-1.2); Calc. Creatinine Clearance 0 mL/min (70-130); Calcium 9.7 mg/dL (7.8-10.44); Carbon Dioxide 20 mmol/L (22-29); Chloride 107 mmol/L (98-107); Estimated GFR 114; Globulin 4.1 g/dL (2.4-3.5); Glucose 99 mg/dL (70-105); Potassium 3.9 mmol/L (3.5-5.1); Protein, Total 8.8 g/dL (6.0-8.3); Sodium 143 mmol/L (136-145)
[2023-09-26 21:10] LABS: Acetaminophen Less than 10 mcg/mL (10.0-30.0); Alcohol 331.6 mg/dL (Less than 10); Salicylate Less than 8.0 mg/dL (15.0-30.0)
[2023-09-26 21:12] LABS: Troponin I Less than 0.010 ng/mL (< 0.028)
[2023-09-26] MEDS ORDERED: Ondansetron PF 4 MG/2 ML Vial ONE (21:27)
== END 2023-09-26 22:50 | disposition home or self-care (01) ==
LOC: ERS 20:15
DX: F10.129 Alcohol abuse with intoxication, unspecified (principal); R51.9 Headache, unspecified; R11.2 Nausea with vomiting, unspecified; I10 Essential (primary) hypertension
CPT/HCPCS: 70450; 71045; 80053; 80307; 83690; 84484; 85025; 85610; 85730; 93005; 96361; 96374; J2405

== ENCOUNTER 2024-03-08 17:03 | Emergency (ER) | payer BC, OTHER | END 2024-03-08 19:15 | disposition home or self-care (01) | LOC: ERS 17:03 | DX: J06.9 Acute upper respiratory infection, unspecified (principal); I48.91 Unspecified atrial fibrillation | CPT/HCPCS: 71045; 87428 ==

== ENCOUNTER 2024-12-16 14:57 | Emergency (ER) | payer BC, OTHER ==
[2024-12-16] MEDS ORDERED: Mag-Al 1200 mg/1200 mg/30 ML UDCUP ONE (15:14)
[2024-12-16] MEDS ORDERED: Lidocaine Viscous Sol 2% 15 ml UD Cup ONE (15:14)
[2024-12-16] MEDS ORDERED: Famotidine 20 MG TAB ONE (15:14)
[2024-12-16] MEDS ORDERED: Ondansetron PF 4 MG/2 ML Vial ONE (15:30)
[2024-12-16] MEDS ORDERED: Famotidine/PF 20 mg/2ml Vial ONE (15:31)
== END 2024-12-16 16:50 | disposition home or self-care (01) ==
LOC: ERS 14:57
DX: R11.2 Nausea with vomiting, unspecified (principal); I10 Essential (primary) hypertension
CPT/HCPCS: 96374; 96375; J2405; Q0162

== ENCOUNTER 2025-03-02 06:22 | Inpatient (IN) | payer OTHER ==
[2025-03-02] MEDS ORDERED: dilTIAZem 25 MG/5 ML VIAL ONE (06:38)
[2025-03-02 06:54] LABS: #Basophils 0.04 10x3/uL (0.0-0.2); #Eosinophils 0.21 10x3/uL (0.0-0.7); #Monocytes 0.80 10x3/uL (0.11-0.59); #Neutrophils 3.52 10x3/uL (1.40-6.50); %Basophils 0.5 % (0.0-1.0); %Eosinophils 2.8 % (0.0-10.0); %Lymphocytes 37.7 % (21.0-51.0); %Monocytes 10.9 % (0.0-10.0); %Neutrophils 47.8 % (42.0-75.0); Hematocrit 42.0 % (42.0-52.0); Hemoglobin 14.9 g/dL (14.0-18.0); Mean Corpuscular Hemoglobin 32.2 pg (27.0-31.0); Mean Corpuscular Volume 90.7 fL (78.0-98.0); Platelet Count 227 10x3/uL (130-400); Red Blood Cell (RBC) Count 4.63 mill/uL (4.70-6.10); White Blood Cell (WBC) Count 7.37 10x3/uL (4.8-10.8)
[2025-03-02] MEDS ORDERED: KETAMINE 100 MG/ML (5ML VIAL) ONE (07:08)
[2025-03-02] MEDS ORDERED: Etomidate 40 MG (20 mL) VIAL ONE (07:08)
[2025-03-02 07:14] LABS: ALT (SGPT) 53 U/L (Less than 45); AST (SGOT) 50 U/L (11-34); Albumin 4.3 g/dL (3.1-4.5); Alkaline Phosphatase 86 U/L (40-110); Anion Gap 19 mmol/L (10-20); BUN (Urea Nitrogen) 8 mg/dL (8.9-20.6); Bilirubin, Total 0.2 mg/dL (0.3-1.2); Calc. Creatinine Clearance 0 mL/min (70-130); Calcium 8.7 mg/dL (7.8-10.44); Carbon Dioxide 17 mmol/L (22-29); Chloride 106 mmol/L (98-107); Globulin 4.4 g/dL (2.4-3.5); Glucose 151 mg/dL (70-105); Potassium 3.7 mmol/L (3.5-5.1); Sodium 138 mmol/L (136-145)
[2025-03-02 08:16] LABS: Acetaminophen Less than 10 mcg/mL (Less than 10); Salicylate Less than 8.0 mg/dL (Less than 8.0)
[2025-03-02] MEDS ORDERED: Ondansetron PF 4 MG/2 ML Vial ONE (09:47)
[2025-03-02] MEDS ORDERED: Acetaminophen 325 MG TAB PO PRN (10:48)
[2025-03-02] MEDS ORDERED: Ondansetron PF 4 MG/2 ML Vial IVP PRN (10:48)
[2025-03-02 11:44] VITALS: BMI 33.0
[2025-03-02] MEDS: Diltiazem HCl/D5W 125 MG in Premix 1 BAG IVPB SCH (13:30)
[2025-03-02] MEDS ORDERED: Metoprolol Succinate XL 100 MG ER.TAB PO SCH (14:15)
[2025-03-02] MEDS: Metoprolol Succinate XL 50 MG ER.TAB PO SCH (14:24)
[2025-03-02 14:36] LABS: Hematocrit 41.0 % (42.0-52.0); Hemoglobin 14.1 g/dL (14.0-18.0); Platelet Count 188 10x3/uL (130-400)
[2025-03-02 14:54] LABS: Magnesium 1.8 mg/dL (1.6-2.6)
[2025-03-02] MEDS: Communication Order-Pharmacy FS ONE (15:20)
[2025-03-02 17:03] LABS: Cocaine Metabolite Screen Negative (Negative); THC/Cannabinoid Screen PRELIM POSITIVE (Negative); Tricyclic Screen Negative (Negative)
[2025-03-03 04:51] LABS: #Basophils 0.05 10x3/uL (0.0-0.2); #Eosinophils 0.20 10x3/uL (0.0-0.7); #Monocytes 0.60 10x3/uL (0.11-0.59); #Neutrophils 2.57 10x3/uL (1.40-6.50); %Basophils 1.0 % (0.0-1.0); %Eosinophils 3.8 % (0.0-10.0); %Lymphocytes 34.4 % (21.0-51.0); %Monocytes 11.5 % (0.0-10.0); %Neutrophils 49.1 % (42.0-75.0); Hematocrit 41.8 % (42.0-52.0); Hemoglobin 13.9 g/dL (14.0-18.0); Mean Corpuscular Hemoglobin 31.1 pg (27.0-31.0); Mean Corpuscular Volume 93.5 fL (78.0-98.0); Platelet Count 181 10x3/uL (130-400); Red Blood Cell (RBC) Count 4.47 mill/uL (4.70-6.10); White Blood Cell (WBC) Count 5.23 10x3/uL (4.8-10.8)
[2025-03-03 05:13] LABS: ALT (SGPT) 39 U/L (Less than 45); AST (SGOT) 43 U/L (11-34); Albumin 4.0 g/dL (3.1-4.5); Alkaline Phosphatase 74 U/L (40-110); Anion Gap 13 mmol/L (10-20); BUN (Urea Nitrogen) 9 mg/dL (8.9-20.6); Bilirubin, Total 1.1 mg/dL (0.3-1.2); Calc. Creatinine Clearance 191 mL/min (70-130); Calcium 9.1 mg/dL (7.8-10.44); Carbon Dioxide 25 mmol/L (22-29); Chloride 104 mmol/L (98-107); Globulin 3.3 g/dL (2.4-3.5); Glucose 95 mg/dL (70-105); Potassium 3.8 mmol/L (3.5-5.1); Sodium 138 mmol/L (136-145)
[2025-03-03] MEDS: Metoprolol Succinate XL 50 MG ER.TAB PO SCH (08:47)
[2025-03-03] MEDS ORDERED: Enoxaparin 40 MG (0.4 mL) SYRINGE SC SCH (09:00)
[2025-03-03] MEDS ORDERED: Metoprolol Succinate XL 100 MG ER.TAB PO SCH (09:00)
[2025-03-03 09:28] VITALS: BP 125/75; TEMP 98.1
== END 2025-03-03 13:05 | disposition home or self-care (01) | DRG 310 ==
LOC: ERS 06:22 → PCU 11:33
PROVIDERS: ADMIT Student in an Organized Health Care Education/Training Program; ATTEND Student in an Organized Health Care Education/Training Program
PROC: 5A2204Z Restoration of Cardiac Rhythm, Single (ICD-10-PCS; principal; 2025-03-02)
DX: I48.0 Paroxysmal atrial fibrillation (principal); G47.33 Obstructive sleep apnea (adult) (pediatric); I10 Essential (primary) hypertension; F10.90 Alcohol use, unspecified, uncomplicated; T44.7X6A Underdosing of beta-adrenoreceptor antagonists, initial encounter; Z91.148 Patient's other noncompliance with medication regimen for other reason; Z79.899 Other long term (current) drug therapy; Y90.3 Blood alcohol level of 60-79 mg/100 ml
CPT/HCPCS: 36415; 71045; 80053; 80306; 80307; 83735; 84484; 85025; 93005; 93306; 94760; 96365; 96375; 99152; J1650; J2250; J2405

== ENCOUNTER 2025-03-06 10:34 | Inpatient (IN) | payer OTHER ==
[2025-03-06 11:25] LABS: #Basophils 0.08 10x3/uL (0.0-0.2); #Eosinophils 0.19 10x3/uL (0.0-0.7); #Monocytes 0.84 10x3/uL (0.11-0.59); #Neutrophils 4.55 10x3/uL (1.40-6.50); %Basophils 1.0 % (0.0-1.0); %Eosinophils 2.4 % (0.0-10.0); %Lymphocytes 29.3 % (21.0-51.0); %Monocytes 10.4 % (0.0-10.0); %Neutrophils 56.4 % (42.0-75.0); Hematocrit 46.2 % (42.0-52.0); Hemoglobin 15.7 g/dL (14.0-18.0); Mean Corpuscular Hemoglobin 31.1 pg (27.0-31.0); Mean Corpuscular Volume 91.5 fL (78.0-98.0); Platelet Count 250 10x3/uL (130-400); Red Blood Cell (RBC) Count 5.05 mill/uL (4.70-6.10); White Blood Cell (WBC) Count 8.06 10x3/uL (4.8-10.8)
[2025-03-06] MEDS ORDERED: dilTIAZem 25 MG/5 ML VIAL ONE (11:28)
[2025-03-06] MEDS ORDERED: Ondansetron PF 4 MG/2 ML Vial ONE ×2 (11:30→13:20)
[2025-03-06 11:44] LABS: ALT (SGPT) 54 U/L (Less than 45); AST (SGOT) 57 U/L (11-34); Albumin 4.6 g/dL (3.1-4.5); Alkaline Phosphatase 74 U/L (40-110); Anion Gap 18 mmol/L (10-20); BUN (Urea Nitrogen) 9 mg/dL (8.9-20.6); Bilirubin, Total 0.2 mg/dL (0.3-1.2); Calc. Creatinine Clearance 0 mL/min (70-130); Calcium 9.8 mg/dL (7.8-10.44); Carbon Dioxide 20 mmol/L (22-29); Chloride 106 mmol/L (98-107); Globulin 4.1 g/dL (2.4-3.5); Glucose 119 mg/dL (70-105); Lipase 51 U/L (8-78); Potassium 3.9 mmol/L (3.5-5.1); Sodium 140 mmol/L (136-145)
[2025-03-06] MEDS ORDERED: Iopamidol 370 76% 100 ML VIAL ONE (11:45)
[2025-03-06 11:59] LABS: INR-International Normal Ratio 0.9; PTT 26.4 sec (22.9-36.1); Prothrombin Time 12.2 sec (12.0-14.7)
[2025-03-06] MEDS ORDERED: Enoxaparin 80 MG (0.8 mL) SYRINGE ONE (12:26)
[2025-03-06] MEDS ORDERED: Enoxaparin 30 MG (0.3 mL) SYRINGE ONE (12:26)
[2025-03-06] MEDS ORDERED: Acetaminophen 325 MG TAB PO PRN (15:21)
[2025-03-06] MEDS ORDERED: Diltiazem HCl/D5W 125 MG in Premix 1 BAG IVPB SCH (16:15)
[2025-03-06] MEDS: Metoprolol Succinate XL 50 MG ER.TAB PO SCH (16:33)
[2025-03-06 17:46] VITALS: BMI 33.0
[2025-03-07 04:31] LABS: #Basophils 0.06 10x3/uL (0.0-0.2); #Eosinophils 0.33 10x3/uL (0.0-0.7); #Monocytes 0.73 10x3/uL (0.11-0.59); #Neutrophils 3.51 10x3/uL (1.40-6.50); %Basophils 0.9 % (0.0-1.0); %Eosinophils 4.7 % (0.0-10.0); %Lymphocytes 33.0 % (21.0-51.0); %Monocytes 10.5 % (0.0-10.0); %Neutrophils 50.3 % (42.0-75.0); Hematocrit 40.8 % (42.0-52.0); Hemoglobin 14.0 g/dL (14.0-18.0); Mean Corpuscular Hemoglobin 31.3 pg (27.0-31.0); Mean Corpuscular Volume 91.1 fL (78.0-98.0); Platelet Count 210 10x3/uL (130-400); Red Blood Cell (RBC) Count 4.48 mill/uL (4.70-6.10); White Blood Cell (WBC) Count 6.97 10x3/uL (4.8-10.8)
[2025-03-07 04:54] LABS: Anion Gap 14 mmol/L (10-20); BUN (Urea Nitrogen) 11 mg/dL (8.9-20.6); Calc. Creatinine Clearance 205 mL/min (70-130); Calcium 9.1 mg/dL (7.8-10.44); Carbon Dioxide 23 mmol/L (22-29); Chloride 106 mmol/L (98-107); Glucose 96 mg/dL (70-105); Potassium 4.1 mmol/L (3.5-5.1); Sodium 139 mmol/L (136-145)
[2025-03-07] MEDS ORDERED: FLU (Fluarix Triv) 25-26 (6MOS UP)/PF 45 MCG/0.5 ML Syringe IM ONE (09:00)
[2025-03-07] MEDS: Enoxaparin 40 MG (0.4 mL) SYRINGE SC SCH (09:01)
[2025-03-07] MEDS: Metoprolol Succinate XL 50 MG ER.TAB PO SCH (09:02)
[2025-03-07 15:22] VITALS: BP 132/86; TEMP 98.1
== END 2025-03-07 15:29 | disposition home or self-care (01) | DRG 310 ==
LOC: ERS 10:34 → PCU 14:42
PROVIDERS: ADMIT Internal Medicine; ATTEND Hospitalist
DX: I48.0 Paroxysmal atrial fibrillation (principal); I10 Essential (primary) hypertension; G47.33 Obstructive sleep apnea (adult) (pediatric); F41.9 Anxiety disorder, unspecified; F32.A Depression, unspecified; Z79.899 Other long term (current) drug therapy
CPT/HCPCS: 36415; 71045; 71275; 80048; 80053; 83690; 84484; 85025; 85379; 85610; 85730; 93005; 96372; 96374; 96375; J1650; J2270; J2405; J3010; J7030; Q9967